=== PATIENT | female | born 1940 | race Caucasian/White ===

== ENCOUNTER 2023-09-02 12:44 | Outpatient (CLI) | payer MEDICARE, SELFPAY ==
--- NOTE | ~2023-09-02 | DEXA_ITS ---
Bone Density Report Name: MARZENA SOTO Age: 82 Sex: Female Ethnicity: White Date of : 1940 Indication: postmenopausal; screening for osteoporosis; height loss; Referring Provider: TREVOR, DONNIE Mirza Study: Bone densitometry was performed. Exam Date: September 02, 2023 Accession number: [id number] Bone Density: Region BMD T-score Z-score Classification AP Spine(L1-L4) 0.955 -0.8 1.9 Normal Femoral Neck (Left) 0.768 -0.7 1.6 Normal Total Hip (Left) 1.025 0.7 2.8 Normal Femoral Neck (Right) 0.756 -0.8 1.5 Normal Total Hip (Right) 0.955 0.1 2.2 Normal Femoral Neck Mean 0.762 -0.8 1.6 Normal Total Hip Mean 0.990 0.4 2.5 Normal World Health Organization criteria for BMD impression classify patients as: Normal (T-score at or above -1.0), Osteopenia (T-score between -1.0 and -2.5), or Osteoporosis (T-score at or below -2.5). 10-year Fracture Risk: FRAX not reported because: All T-scores for Spine Total, Hip Total, Femoral Neck at or above -1.0 Clinical Information Provided by Patient: Patient maximum height was 64 Menopause Age: 52 No regular weight bearing exercise Drinks caffeinated beverages Onset of menses at age 14 Number of children 1 Impression: The patient has normal bone mass. Discussion: BONE DENSITY IS ABOVE THE MINIMUM DESIRABLE LEVEL AT ALL SKELETAL SITES TESTED. This patient?s bone mineral density is above the minimum desirable level (T-score -1.0 or better) at all sites measured. The patient should follow a healthful lifestyle (good nutrition with adequate calcium and vitamin D, and appropriate weight-bearing exercise). Follow-Up: Consider repeating this study in 5 years or sooner if there is some new clinical indication. Reported by: Dr. Ori Robles on 09/02/2023 1:13:00 PM. Reviewed, dictated and finalized at location [facility]
== END 2023-09-02 12:45 | disposition home or self-care (01) ==
PROVIDERS: PCP Internal Medicine Geriatric Medicine; Visit Provider Internal Medicine Geriatric Medicine
DX: Z78.0 Asymptomatic menopausal state (principal)
CPT/HCPCS: 77080